=== PATIENT | male | born 1990 | race Caucasian/White ===

== ENCOUNTER 2019-12-02 12:21 | Emergency (ER) | payer OTHER ==
[~2019-12-02] VITALS: Ht 167.6 cm; Wt 120.5 kg
[2019-12-02 12:35] VITALS: BP 131/84
== END 2019-12-02 13:44 | disposition left against medical advice (07) ==
LOC: ED 12:21
DX: R69 Illness, unspecified (principal); Z53.21 Procedure and treatment not carried out due to patient leaving prior to being seen by health care provider